=== PATIENT | female | born 1950 | race Hispanic/Latino ===

== ENCOUNTER 2022-03-12 06:31 | Day surgery (SDC) | payer MEDICARE ==
--- NOTE | 2022-03-11 13:28 | Short Stay Summary ---
Short Stay Documentation Date of service: 03/11/22 Narrative H&P: Patient is 71-year-old female with past medical history of hypertension, A. fib, and prediabetes who patient presents for elective cardioversion. Patient denies any complaints of chest pain, shortness of breath, lightheadedness or dizziness. - History Past Medical History: atrial fib, diabetes, hypertension Past Surgical History: cholecystectomy, hernia repair, Other (knee surgery) Social history: no smoking, no alcohol abuse - Physical exam General appearance: no acute distress HEENT: PERRLA Lungs: Clear to auscultation Heart: Regular rate Gastrointestinal: normoactive bowel sounds Extremities: no ischemia, pulses intact Neurological: Normal speech - Brief post op/procedure progress note Date of procedure: 03/12/22 Pre-op diagnosis: afib Post-op diagnosis: same Anesthesia: none Estimated blood loss: none - Hospital course Hospital course: Patient presents today for cardioversion due to A. fib. Patient was successfully cardioverted to sinus rhythm. Patient tolerated procedure well with no complication. Patient will be discharged home and follow-up in the office as an outpatient - Disposition Condition at discharge: Good Disposition: 01 HOME / SELF CARE / HOMELESS - Discharge Diagnoses (1) Afib Status: Acute (2) HTN (hypertension) Status: Acute (3) Diabetes Status: Acute Short Stay Discharge Plan Activity: advance as tolerated Diet: low fat, low cholesterol, low salt Follow up with: SONJA HOLM MD [Staff Physician] - 7 Days
[2022-03-12] MEDS ORDERED: SODIUM CHLORIDE 0.9% 1000 ML 1,000 ML IV SCH (07:00)
[2022-03-12 07:23] LABS: Basophils % (Auto) 0.6 % (0.0-1.8); Eosinophils # (Auto) 0.2 K/mm3 (0.0-0.4); Eosinophils % (Auto) 2.9 % (0.0-4.3); Hematocrit 43.1 % (30.3-42.9); Hemoglobin 14.5 gm/dl (10.1-14.3); Lymphocytes # (Auto) 1.1 K/mm3 (1.2-5.4); Lymphocytes % (Auto) 14.6 % (13.4-35.0); Mean Corpuscular HGB Conc 34 % (30-34); Mean Corpuscular Volume 93 fl (79-97); Monocytes # (Auto) 1.1 K/mm3 (0.0-0.8); Monocytes % (Auto) 15.5 % (0.0-7.3); Platelet Count 294 K/mm3 (140-440); Red Blood Count 4.65 M/mm3 (3.65-5.03); Red Cell Distribution Width 13.7 % (13.2-15.2)
[2022-03-12 07:40] LABS: Calcium 9.2 mg/dL (8.4-10.2)
[2022-03-12 07:47] LABS: INR 1.01 (0.87-1.13)
[2022-03-12 07:48] LABS: Partial Thromboplastin Time 39.8 Sec. (24.2-36.6)
--- NOTE | 2022-03-12 09:32 | Anesthesia Consultation ---
Anesthesia Consult and Med Hx Date of service: 03/12/22 - Airway Anesthetic Teeth Evaluation: Good ROM Head & Neck: Adequate Mental/Hyoid Distance: Adequate Mallampati Class: Class I Intubation Access Assessment: Good - Pulmonary Exam CTA: Yes - Pre-Operative Health Status ASA Pre-Surgery Classification: ASA3 Proposed Anesthetic Plan: MAC - Pulmonary Hx Smoking: No Hx Respiratory Symptoms: No Hx Sleep Apnea: No - Cardiovascular System Hx Hypertension: Yes Hx Cardia Arrhythmia: Yes (Atrial Fibrillation) Hx Peripheral Vascular Disease: Yes - Central Nervous System Hx Neuromuscular Disorder: No Hx Seizures: No Hx Psychiatric Problems: No - Endocrine Hx Renal Disease: No Hx Liver Disease: No Hx Non-Insulin Dependent Diabetes: Yes (Prediabetic) Hx Thyroid Disease: Yes Hx Hypothyroidism: Yes - Hematic Hx Anemia: Yes - Other Systems Hx Alcohol Use: No Hx Substance Use: No Hx Cancer: No Hx Obesity: Yes (BMI- 32.1kg) - Additional Comments Anesthesia Medical History Comments: No hx. of anesthesia complications
--- NOTE | 2022-03-12 09:33 | Anesthesia Day of Surgery ---
Anesthesia Day of Surgery - Day of Surgery Patient Examined: Yes Patient H&P Reviewed: Yes Patient is NPO: Yes Beta Blockers: No Cardiac Clearance: No Pulmonary Clearance: No
[2022-03-12] MEDS ORDERED: propofoL 200 MG/20 ML VIAL IV ONE (09:40)
[2022-03-12] MEDS ORDERED: LIDOCAINE MPF (2%) 20 MG/1 ML VIAL 5 ML ONE (09:40)
--- NOTE | 2022-03-12 10:07 | Electrocardiograph Report ---
[facility] Test Date: 2022-03-12 Test Time: 07:14:44 Pat Name: EMILIANO CHEN Department: Room: Gender: F Credit Clerk: JIGAR : 1950 Requested By: JORGITO GUADALUPE Order Number: [id number] Reading MD: Jorgito Guadalupe Measurements Intervals [place] Rate: 73 P: NV: QRS: 56 QRSD: 87 T: -7 QT: 383 QTc: 421 Interpretive Statements Atrial fibrillation Low voltage, precordial leads Borderline T abnormalities, diffuse leads No previous ECG available for comparison Electronically Signed On 03-12-2022 10:07:10 EDT by Jorgito Guadalupe
--- NOTE | 2022-03-12 10:44 | Electrophysiological Studies ---
DATE OF SERVICE: 03/12/2022 ELECTRICAL CARDIOVERSION REFERRING PHYSICIAN: Jorgito Guadalupe MD INDICATIONS FOR PROCEDURE: The patient is a very pleasant 71-year-old female who has atrial fibrillation, which is relatively new, has been on systemic anticoagulation for greater than 2-1/2 months uninterrupted in the form of Eliquis. Here for elective cardioversion. Risks, benefits and alternatives discussed at length prior to obtaining informed consent. DESCRIPTION OF PROCEDURE: The patient was brought to the cardioversion suite in a postabsorptive state. Anesthesia bedside throughout. Once adequate anesthesia was obtained, we used 120 biphasic synchronized joules x 1 shock with successful resumption of sinus rhythm. No complications. The patient tolerated the procedure well. CONCLUSIONS: Successful elective electrical cardioversion of atrial fibrillation with resumption of sinus rhythm. Anesthesia to recover the patient. May discharge in 2 hours. Discussed with . The patient will follow up with us in the office. Continue anticoagulation. TID: [id number] RECEIPT: [id number] MARY ANN/AMISH
[2022-03-12 11:18] VITALS: BP 96/50
--- NOTE | 2022-03-12 15:32 | Post Anesthesia Evaluation ---
- Post Anesthesia Evaluation Patient Participated: Yes Airway Patent: Yes Stable Respiratory Function: Yes Nausea/Vomiting: No Temp > 96.8F: Yes Pain Manageable: Yes Adequeate Hydration: Yes Anesthesia Complications: No Block Receding Appropriately: Not Applicable Patient on Ventilator: No
--- NOTE | 2022-03-14 10:20 | Electrocardiograph Report ---
[facility] Test Date: 2022-03-12 Test Time: 09:59:57 Pat Name: EMILIANO CHEN Department: Room: Gender: F Telephone Information Supervisor: JIGAR : 1950 Requested By: JORGITO GUADALUPE Order Number: [id number] Reading MD: Jorgiot Guadalupe Measurements Intervals [place] Rate: 52 P: 19 DE: 173 QRS: 56 QRSD: 87 T: 24 QT: 461 QTc: 424 Interpretive Statements Sinus rhythm Atrial premature complex Anteroseptal infarct, age indeterminate Compared to ECG 03/12/2022 07:14:44 Atrial premature complex(es) now present Myocardial infarct finding now present Atrial fibrillation no longer present T-wave abnormality no longer present Electronically Signed On 03-14-2022 10:19:49 EDT by Jorgito Guadalupe
== END 2022-03-12 11:40 | disposition home or self-care (01) ==
LOC: CATHLABREC 06:31
PROVIDERS: ATTEND Internal Medicine
DX: I48.91 Unspecified atrial fibrillation (principal); I10 Essential (primary) hypertension; I42.9 Cardiomyopathy, unspecified; E78.00 Pure hypercholesterolemia, unspecified; E66.9 Obesity, unspecified; M19.90 Unspecified osteoarthritis, unspecified site; E03.9 Hypothyroidism, unspecified; E11.9 Type 2 diabetes mellitus without complications; D64.9 Anemia, unspecified; Z98.890 Other specified postprocedural states; Z83.3 Family history of diabetes mellitus; Z82.5 Family history of asthma and other chronic lower respiratory diseases; Z79.899 Other long term (current) drug therapy; Z90.49 Acquired absence of other specified parts of digestive tract; Z68.32 Body mass index [BMI] 32.0-32.9, adult; Z90.710 Acquired absence of both cervix and uterus; Z82.49 Family history of ischemic heart disease and other diseases of the circulatory system
CPT/HCPCS: 36415; 80048; 85025; 85610; 85730; 92960; 93005; J2704; J7030